=== PATIENT | female | born 1960 | race African-American/Black ===

== ENCOUNTER 2018-07-08 09:12 | Emergency (ER) | payer BC ==
[2018-07-08 09:19] VITALS: BP 150/72; PULSE 83; TEMP 98.1; BMI 34.0
--- NOTE | 2018-07-08 09:56 | PDOC ---
History of Present Illness - General Chief Complaint: Wound Stated Complaint: WOUND Time Seen by Provider: 07/08/18 09:35 History Source: Patient Exam Limitations: No Limitations - History of Present Illness Initial Comments: 07/08/18 09:54 Patient states Monday afternoon was taking a shower, and had an acute onset of bleeding from a varicose pain in her left lower thigh. Called the paramedics but by the time they arrived the bleeding had stopped and did not get transported for evaluation. States this morning getting ready for buddhism was in the shower and had a recurrence of this bleed. Came to the emergency department for evaluation. Denies lightheadedness denies profuse blood loss, suffers from varicose veins but has never had a rupture. Timing/Duration: reports: just prior to arrival, gone now Severity: Yes: mild Location: reports: extremities Associated Symptoms: reports: denies symptoms Past History - Travel Traveled outside of the country in the last 30 days: No Close contact w/someone who was outside of country & ill: No - Past Medical History Allergies/Adverse Reactions: Allergies Allergy/AdvReac Type Severity Reaction Status Date / Time NSAIDS (Non-Steroidal Allergy Verified 07/08/18 09:19 Anti-Inflamma Home Medications: Ambulatory Orders Losartan Potassium 50 mg PO BID 07/08/18 Metformin HCl [Glucophage] 500 mg PO BID 07/08/18 COPD: No Diabetes: Yes HTN: Yes Hypercholesterolemia: Yes - Suicide/Smoking/Psychosocial Hx Smoking History: Never smoked Review of Systems - Review of Systems Able to Perform ROS?: Yes Is the patient limited Irish proficient: Yes Constitutional: Yes: See HPI. No: Symptoms Reported, Fever, Malaise HEENTM: No: Symptoms Reported Musculoskeletal: Yes: Symptoms Reported, See HPI, Muscle Pain Integumentary: Yes: Symptoms Reported, See HPI, Lesions All Other Systems: Reviewed and Negative *Physical Exam - Vital Signs Last Vital Signs Temp Pulse Resp BP Pulse Ox 98.1 F 83 18 150/72 98 07/08/18 09:15 07/08/18 09:15 07/08/18 09:15 07/08/18 09:15 07/08/18 09:15 - Physical Exam General Appearance: Yes: Nourished, Appropriately Dressed. No: Apparent Distress HEENT: positive: JESSENIA, Normal ENT Inspection, TMs Normal, Pharynx Normal Respiratory/Chest: positive: Lungs Clear, Normal Breath Sounds Musculoskeletal: positive: Normal Inspection. negative: Vertebral Tenderness Extremity: positive: Normal Capillary Refill, Normal Inspection, Normal Range of Motion, Swelling, Other (pinpoint lesion posterior aspect of left lower thigh , site of bleeding from varicosity. Is no active bleeding right now nontender no bruising.) Neurologic: positive: accounts collector II-XII NML intact, Fully Oriented, Alert, Normal Mood/ Affect, Normal Response, Motor Strength 5/5 Progress Note - Progress Note Progress Note: Ruptured varicosity hemostased. Applied cauterizing Stick to site with pressure dressing. Talya to follow-up with vascular surgeon tomorrow *DC/Admit/Observation/Transfer Diagnosis at time of Disposition: Bleeding from varicose veins of left lower extremity - Discharge Dispostion Disposition: HOME Condition at time of disposition: Stable Decision to Admit order: No - Referrals Referrals: Chandni Roberts [Primary Care Provider] - Sylvester Morales MD [Staff Physician] - - Patient Instructions Printed Discharge Instructions: DI for Varicose Veins Additional Instructions: Rest, ice to area on and off for 15 minutes 4-6 times a day Avoid heavy lifting or exercise until pain and swelling is resolved or until further directed Keep area highly elevated to reduce swelling Use splints/Cain wrap as directed Followup with vascular surgeon in one to 2 days if not improving, May use ibuprofen 2-200 mg tablets every 6 hours as needed for pain - Post Discharge Activity Forms/Work/School Notes: Back to Work
== END 2018-07-08 10:10 | disposition home or self-care (01) ==
LOC: JERFT 09:12
DX: I83.892 Varicose veins of left lower extremity with other complications (principal); I10 Essential (primary) hypertension; E78.00 Pure hypercholesterolemia, unspecified; E11.9 Type 2 diabetes mellitus without complications; Z79.84 Long term (current) use of oral hypoglycemic drugs
CPT/HCPCS: 99281-25